=== PATIENT | female | born 1990 | race Caucasian/White ===

== ENCOUNTER 2019-07-03 03:42 | Emergency (ER) | payer SELFPAY ==
[~2019-07-03] VITALS: Ht 185.4 cm; Wt 69.4 kg
--- OUTSIDE RECORDS SUMMARY | 2019-07-03 03:44 | XMS REPORT ---
Author Author [facility] Address Unknown Phone Unavailable Care Team Providers Care Seed Tester Name Role Phone Unavailable Unavailable Problems This patient has no known problems. Allergies, Adverse Reactions, Alerts This patient has no known allergies or adverse reactions. Medications This patient has no known medications. Encounters Start Date/Time End Date/Time Encounter Type Admission Type Attending [facility] Facility Care Department Encounter ID 2017-08-30 10:58:17 2017-08-30 10:58:17 Outpatient [facility] [id number] 2017-08-29 09:56:26 2017-08-29 09:56:26 Outpatient [facility] [id number] 2017-08-29 00:00:00 2017-08-29 00:00:00 Outpatient [facility] [id number]
[2019-07-03] MEDS ORDERED: IBUPROFEN 200 MG TAB ONE (04:11)
[2019-07-03] MEDS ORDERED: IBUPROFEN 200 MG TAB PO ONE (04:15)
[2019-07-03] MEDS ORDERED: CEFTRIAXONE SOD 1 GM VIAL IM ONE (04:30)
[2019-07-03] MEDS ORDERED: CEFTRIAXONE SOD 1 GM VIAL ONE (04:31)
[2019-07-03] MEDS ORDERED: LIDOCAINE HCL 1% LOCAL INJ 20 ML VIAL ONE (04:31)
== END 2019-07-03 05:38 | disposition home or self-care (01) ==
LOC: ER 03:42 → FSED 05:38
DX: J02.0 Streptococcal pharyngitis (principal); F17.200 Nicotine dependence, unspecified, uncomplicated
CPT/HCPCS: 83518 ×2; 87400; 96372; 99283; J0696; J2001